=== PATIENT | male | born 1990 | race African-American/Black ===

== ENCOUNTER 2018-06-15 11:16 | Emergency (ER) | payer MEDICAID, OTHER ==
[2018-06-15 12:01] LABS: APPEARANCE,URINE CLEAR; BILIRUBIN,URINE NEGATIVE (NEGATIVE); COLOR,URINE YELLOW; GLUCOSE, URINE NEGATIVE (NEGATIVE); KETONES,URINE NEGATIVE (NEGATIVE); LEUKOCYTE ESTERASE,URINE TRACE (NEGATIVE); NITRITE,URINE NEGATIVE (NEGATIVE); PROTEIN,URINE NEGATIVE (NEGATIVE); URINE SPECIFIC GRAVITY 1.012; UROBILINOGEN,URINE NEGATIVE mg/dL (<2.0)
--- NOTE | 2018-06-15 12:52 | ER Document Report ---
HPI - HPI Patient complains to provider of: Penile discharge and diarrhea Onset: Other - Several days Onset/Duration: Gradual Pain Level: 3 Context: 28-year-old circumcised male complaining of terminal dysuria and penile white thick discharge for several days. His female sexual partner also has some vaginal discharge and pelvic pain. They both presented to the emergency room for treatment today. He incidentally has had some diarrhea but none today. No rash. No testicular or scrotal pain or swelling. No penile swelling. Associated Symptoms: None Exacerbated by: Denies Relieved by: Denies Similar symptoms previously: No Recently seen / treated by doctor: No - ROS ROS below otherwise negative: Yes Systems Reviewed and Negative: Yes All other systems reviewed and negative - GASTROINTESTINAL Gastrointestinal: REPORTS: Abdominal Pain - REPRODUCTIVE Reproductive: REPORTS: Abnormal bleeding / discharge Past Medical History - General Information source: Patient - Social History Smoking Status: Unknown if Ever Smoked Frequency of alcohol use: None Drug Abuse: None Lives with: Family Family History: Reviewed & Not Pertinent Patient has suicidal ideation: No Patient has homicidal ideation: No - Medical History Medical History: Negative Surgical Hx: Negative Vertical Provider Document - CONSTITUTIONAL Agree With Documented VS: Yes General Appearance: No Apparent Distress - INFECTION CONTROL TRAVEL OUTSIDE OF THE [place] IN LAST 30 DAYS: No - NECK Neck: Supple - GI/ABDOMEN Gastrointestinal: Abdomen Soft, Abdomen Non-Tender - MUSCULOSKELETAL/EXTREMETIES Musculoskeletal/Extremeties: MAEW - NEURO Level of Consciousness: Alert - DERM Integumentary: No Rash Course - Re-evaluation Re-evalutation: 06/15/18 Positive for gonorrhea, negative for chlamydia, female sexual partner was positive for trichomonas I treated him with Flagyl as well. Advised not to drink alcohol. He has been treated for both gonorrhea and chlamydia prior to the results - Vital Signs Vital signs: Temp Pulse Resp BP Pulse Ox 98.4 F 70 16 138/68 H 98 06/15/18 11:25 06/15/18 11:25 06/15/18 11:25 06/15/18 11:25 06/15/18 11:25 - Laboratory Laboratory results interpreted by me: 06/15/18 11:25 Ur Leukocyte Esterase TRACE H Discharge - Discharge Clinical Impression: Gonorrhea Condition: Good Disposition: HOME, SELF-CARE Instructions: Gonorrhea ([facility]), Metronidazole ([facility]), [facility], Rocephin ([facility]) Additional Instructions: You have a gonorrheal sexually transmitted infection Rocephin 250 mg in your muscle has treated the gonorrhea No sex for 2 weeks You also need to be treated for trichomonas No alcohol when you take the Flagyl Prescriptions: Metronidazole [Flagyl 500 mg Tablet] 2,000 mg PO ONCE #4 tablet Forms: Return to Work
[2018-06-15] MEDS ORDERED: LIDOCAINE 1% INJ-PF (10 MG/ML) 30 ML SDV INJ ONE (13:00)
[2018-06-15] MEDS ORDERED: AZITHROMYCIN 250 MG TABLET PO ONE (13:00)
[2018-06-15] MEDS ORDERED: CEFTRIAXONE INJ 250 MG VIAL IM ONE (13:00)
[2018-06-15] MEDS ORDERED: ONDANSETRON 4 MG TAB.RAPDIS PO ONE (13:01)
[2018-06-15 13:29] LABS: CHLAM PCR NOT DETECTED (NOT DETECT); GON PCR DETECTED (NOT DETECT)
[2018-06-15 14:02] VITALS: BP 136/74
== END 2018-06-15 14:02 | disposition home or self-care (01) ==
LOC: ER 11:16
DX: A54.9 Gonococcal infection, unspecified (principal); R36.9 Urethral discharge, unspecified; R19.7 Diarrhea, unspecified; R30.0 Dysuria
CPT/HCPCS: 99284; 96372; 81001; 87491; 87591; S0119; J3490; J0696

== ENCOUNTER 2018-07-17 14:31 | Emergency (ER) | payer SELFPAY ==
[2018-07-17 14:45] VITALS: BP 126/63
[2018-07-17] MEDS ORDERED: CEFTRIAXONE INJ 250 MG VIAL IM ONE (14:58)
[2018-07-17] MEDS ORDERED: LIDOCAINE 1% INJ-PF (10 MG/ML) 30 ML SDV INJ ONE (14:58)
[2018-07-17] MEDS ORDERED: AZITHROMYCIN 1 GM SUSP PACKET PO ONE (14:58)
[2018-07-17] MEDS ORDERED: IBUPROFEN 800 MG TABLET PO ONE (14:59)
--- NOTE | 2018-07-17 15:05 | ER Document Report ---
HPI - HPI Patient complains to provider of: FEVER Time Seen by Provider: 07/17/18 14:48 Onset: Other - 4 DAYS Quality of pain: Other - SORE Severity: Severe Pain Level: 4 Context: Patient presents emergency department with complaints of flulike symptoms to include fever nasal congestion headache body pains and possible dehydration issues and night sweats for the past 4 days. He reports decreased eating but drinking approximately 12 bottles of water a day and his urine still looks dark. Denies vomiting and diarrhea. He reports he has not received a flu vaccine. Reports his daughter and his girlfriend had the same symptoms a couple weeks ago. He also reports he still having some penile discharge. He reports he was treated for gonorrhea on June 15 but did not take his medication correctly. Reports possible re-exposure. Associated Symptoms: Body/muscle aches, Fever, Headache Exacerbated by: Denies Relieved by: Denies Similar symptoms previously: No Recently seen / treated by doctor: No Past Medical History - General Information source: Patient - Social History Smoking Status: Unknown if Ever Smoked Cigarette use (# per day): No Frequency of alcohol use: None Drug Abuse: None Occupation: [employer] Lives with: Family Family History: Reviewed & Not Pertinent Patient has suicidal ideation: No Patient has homicidal ideation: No - Medical History Medical History: Negative Renal/ Medical History: Denies: Hx Peritoneal Dialysis Surgical Hx: Negative Vertical Provider Document - CONSTITUTIONAL Agree With Documented VS: Yes Exam Limitations: No Limitations General Appearance: WD/WN, No Apparent Distress - INFECTION CONTROL TRAVEL OUTSIDE OF THE [place] IN LAST 30 DAYS: No - HEENT HEENT: Atraumatic, Normocephalic, Pharyngeal Exudate, Pharyngeal Erythema - Good airway, clean voice. negative: Conjuctival Injection, Tympanic Membrane Red, Tympanic Membrane Bulging - NECK Neck: Normal Inspection, Supple. negative: Lymphadenopathy-Left, Lymphadenopathy-Right - RESPIRATORY Respiratory: Breath Sounds Normal, No Respiratory Distress - CARDIOVASCULAR Cardiovascular: Regular Rate, Regular Rhythm - GI/ABDOMEN Gastrointestinal: Abdomen Soft, Abdomen Non-Tender - BACK Back: Normal Inspection - MUSCULOSKELETAL/EXTREMETIES Musculoskeletal/Extremeties: BASHIR ABMROSE - NEURO Level of Consciousness: Awake, Alert, Appropriate Motor/Sensory: No Motor Deficit - DERM Integumentary: Warm, Dry Course - Re-evaluation Re-evalutation: 07/17/18 15:05 Patient was instructed on pending strep and GC chlamydia test. Patient will be treated with ibuprofen and p.o. fluids. Dictation of this chart was performed using voice recognition software; therefore, there may be some unintended grammatical errors. 07/17/18 16:04 Instructed on negative strep throat culture pending. Patient also instructed he will be contacted by the culture nurse for positive results he was also given the telephone number of the culture nurse if he wants to inquire himself. temp decreased with ibuprofen. - Vital Signs Vital signs: Temp Pulse Resp BP Pulse Ox 102.9 F H 94 15 126/63 H 99 07/17/18 14:43 07/17/18 14:43 07/17/18 14:43 07/17/18 14:43 07/17/18 14:43 Discharge - Discharge Clinical Impression: Flu-like symptoms, Possible exposure to STD Condition: Stable Disposition: HOME, SELF-CARE Instructions: Azithromycin ([facility]), Chlamydia ([facility]), Gonorrhea ([facility]), Use of Over -The-Counter Ibuprofen ([facility]), [facility] [place], Rocephin ([facility]) Additional Instructions: *You have been evaluated for flulike symptoms, possible re-exposure to STD *Monitor your temperature, take Tylenol or ibuprofen as indicated, push fluids, good handwashing *You have been treated for gonorrhea and chlamydia with Rocephin and Zithromax. To find out the results of your STD cultures contact the culture nurse at [phone] Wednesday through Wednesday 9am- 4pm *Your strep test was negative but I have sent off a throat culture. If you need antibiotics you will be contacted within 2 days. *Follow up with your primary care provider or the health department within 1 week for recheck *Return to ED for worsening condition, changes, needs Monitor your blood pressure. Your blood pressure was elevated today. This may be because you were anxious, in pain or because you need medication. It is important to follow up with your primary care provider for full evaluation. Forms: Elevated Blood Pressure, Return to Work
[2018-07-17 15:34] LABS: APPEARANCE,URINE CLEAR; BILIRUBIN,URINE NEGATIVE (NEGATIVE); COLOR,URINE YELLOW; GLUCOSE, URINE NEGATIVE (NEGATIVE); KETONES,URINE NEGATIVE (NEGATIVE); LEUKOCYTE ESTERASE,URINE NEGATIVE (NEGATIVE); NITRITE,URINE NEGATIVE (NEGATIVE); PROTEIN,URINE 100 mg/dL (NEGATIVE); URINE SPECIFIC GRAVITY 1.024
[2018-07-17 16:57] LABS: CHLAM PCR NOT DETECTED (NOT DETECT); GON PCR NOT DETECTED (NOT DETECT)
== END 2018-07-17 16:05 | disposition home or self-care (01) ==
LOC: ER 14:31
DX: R50.9 Fever, unspecified (principal); R05 Cough; R09.81 Nasal congestion; M79.10 Myalgia, unspecified site
CPT/HCPCS: 99283; 96372; 87070; 87880; 87077; 81001; 87491; 87591; J3490; Q0144; J0696

== ENCOUNTER 2018-09-14 11:21 | Emergency (ER) | payer SELFPAY ==
[2018-09-14 11:40] VITALS: BP 126/64
== END 2018-09-14 13:45 | disposition left against medical advice (07) ==
LOC: ER 11:21
DX: Z53.21 Procedure and treatment not carried out due to patient leaving prior to being seen by health care provider (principal)

== ENCOUNTER 2018-10-25 17:42 | Emergency (ER) | payer SELFPAY ==
[2018-10-25 17:52] VITALS: BP 136/80
[2018-10-25] MEDS ORDERED: LIDOCAINE 1% INJ-PF (10 MG/ML) 30 ML SDV INJ ONE (18:06)
[2018-10-25] MEDS ORDERED: CEFTRIAXONE INJ 250 MG VIAL IM ONE (18:06)
[2018-10-25] MEDS ORDERED: AZITHROMYCIN 250 MG TABLET PO ONE (18:06)
--- NOTE | 2018-10-25 18:17 | ER Document Report ---
HPI - HPI Time Seen by Provider: 10/25/18 18:06 Pain Level: 2 Notes: Patient is a 28-year-old male who presents the emergency department requesting closure to an STD. Patient states that his significant other is having discharge and he has needed treatment for gonorrhea before. Patient states that he does not have any discharge or discomfort when he urinates. He otherwise feels normal. Denies drug allergies. No other concerns or complaints. Patient states that he wants to get ahead of any developing symptoms. Denies any headache, fever, neck pain, URI, sore throat, chest pain, palpitations, syncope, cough, shortness of breath, wheeze, dyspnea, abdominal pain, nausea/vomiting/diarrhea, urinary retention, dysuria, hematuria, back pain, or rash. - ROS Systems Reviewed and Negative: Yes All other systems reviewed and negative - CONSTITUTIONAL Constitutional: DENIES: Fever, Chills Past Medical History - Social History Smoking Status: Never Smoker Family History: Reviewed & Not Pertinent Patient has suicidal ideation: No Patient has homicidal ideation: No Renal/ Medical History: Denies: Hx Peritoneal Dialysis Vertical Provider Document - CONSTITUTIONAL Agree With Documented VS: Yes Notes: PHYSICAL EXAMINATION: GENERAL: Well-appearing, well-nourished and in no acute distress. HEAD: Atraumatic, normocephalic. EYES: Pupils equal round and reactive to light, extraocular movements intact, sclera anicteric, conjunctiva are normal. ENT: Nares patent and without discharge. oropharynx clear without exudates. No tonsilar hypertrophy or erythema. Moist mucous membranes. NECK: Normal range of motion, supple without lymphadenopathy LUNGS: Breath sounds clear to auscultation bilaterally and equal. No wheezes rales or rhonchi. HEART: Regular rate and rhythm without murmurs, rubs, gallops. ABDOMEN: Soft, nontender, nondistended abdomen. No guarding, no rebound. No masses appreciated. Normal bowel sounds present. No CVA tenderness bilaterally. : No erythema, swelling, ulcerations, lesions. No urethral discharge. Nontender to palpation of the penis/testicles/scrotum. Musculoskeletal: FROM to passive/active. Strength 5+/5. NEUROLOGICAL: Normal speech, normal gait. PSYCH: Normal mood, normal affect. SKIN: Warm, Dry, normal turgor, no rashes or lesions noted. - INFECTION CONTROL TRAVEL OUTSIDE OF THE [place] IN LAST 30 DAYS: No Course - Re-evaluation Re-evalutation: 10/25/18 18:15 patient is an afebrile, well-hydrated, 28-year-old male who presents emergency department for Possible exposure to STD. Vitals are acceptable without significant tachycardia, tachypnea, or hypoxia. PE is otherwise unremarkable. Chlamydia and gonorrhea tests are pending. Patient was given Zithromax and Rocephin. Safe sexual practices reviewed. Patient to check with health department this week. Return to the ED with any other worsening/concerning symptoms as reviewed. Patient to call for his results later. Patient is in agreement. - Vital Signs Vital signs: Temp Pulse Resp BP Pulse Ox 99.4 F 81 18 136/80 H 99 10/25/18 17:49 10/25/18 17:49 10/25/18 17:49 10/25/18 17:49 10/25/18 17:49 Discharge - Discharge Clinical Impression: Possible exposure to STD Condition: Stable Disposition: HOME, SELF-CARE Additional Instructions: Maintain fluid intake Proper hygenic technique Keep the skin clean Tylenol/ibuprofen as needed Take medications as directed You may call for your test results tomorrow. F/u with your PCM in 3-5 days for a recheck Check in with the health department this week Consider consult with a Urologist for ongoing/worsening symptoms. Return to the ED with any worsening symptoms and/or development of fever, headache, chest pain, palpitations, syncope, shortness of breath, trouble breathing, abdominal pain, n/v/d, blood in stool/urine, loss of control of bowel/bladder, urinary retention, or other worsening symptoms that are concerning to you. Forms: Elevated Blood Pressure Referrals: [facility] [Provider Group] - Follow up as needed [facility] [NO LOCAL MD] - Follow up in 3-5 days
[2018-10-25 19:51] LABS: CHLAM PCR NOT DETECTED (NOT DETECT); GON PCR NOT DETECTED (NOT DETECT)
== END 2018-10-25 18:30 | disposition home or self-care (01) ==
LOC: ER 17:42
DX: Z20.2 Contact with and (suspected) exposure to infections with a predominantly sexual mode of transmission (principal)
CPT/HCPCS: 99283; 96372; 87491; 87591; J3490; J0696

== ENCOUNTER 2019-11-04 16:12 | Emergency (ER) | payer SELFPAY ==
[2019-11-04 16:19] VITALS: BP 125/69
[2019-11-04] MEDS ORDERED: CEFTRIAXONE INJ 250 MG VIAL IM ONE (16:21)
[2019-11-04] MEDS ORDERED: AZITHROMYCIN 250 MG TABLET PO ONE (16:21)
[2019-11-04] MEDS ORDERED: LIDOCAINE 1% INJ-PF (10 MG/ML) 30 ML SDV INJ ONE (16:21)
--- NOTE | 2019-11-04 16:27 | ER Document Report ---
HPI - HPI Patient complains to provider of: STD Exposure Time Seen by Provider: 11/04/19 16:16 Onset: Other Onset/Duration: Sudden Quality of pain: No pain Pain Level: Denies Context: 29-year-old male presents emergency department with reports that he is been exposed to chlamydia. Reports he slept with a lady without protection that was just tested for STDs here in the emergency department. She was positive for chlamydia. He would like to be treated. He denies symptoms. Denies penile discharge denies testicular pain. Reports he has had gonorrhea in the past. Denies fever vomiting diarrhea. Reports he is voiding without problems Associated Symptoms: None Exacerbated by: Denies Relieved by: Denies Similar symptoms previously: Yes Recently seen / treated by doctor: No - CONSTITUTIONAL Constitutional: DENIES: Fever, Chills - REPRODUCTIVE Reproductive: DENIES: : Past Medical History - General Information source: Patient - Social History Smoking Status: Never Smoker Chew tobacco use (# tins/day): No Frequency of alcohol use: None Drug Abuse: None Family History: Reviewed & Not Pertinent Patient has suicidal ideation: No Patient has homicidal ideation: No Renal/ Medical History: Reports: Other - gonorrhea. Denies: Hx Peritoneal Dialysis Surgical Hx: Negative Vertical Provider Document - CONSTITUTIONAL Agree With Documented VS: Yes Exam Limitations: No Limitations General Appearance: WD/WN, No Apparent Distress - INFECTION CONTROL TRAVEL OUTSIDE OF THE [place] IN LAST 30 DAYS: No - HEENT HEENT: Atraumatic, Normocephalic. negative: Conjuctival Injection - NECK Neck: Supple - RESPIRATORY Respiratory: Breath Sounds Normal, No Respiratory Distress - CARDIOVASCULAR Cardiovascular: Regular Rate, Regular Rhythm - GI/ABDOMEN Gastrointestinal: Abdomen Soft, Abdomen Non-Tender - MUSCULOSKELETAL/EXTREMETIES Musculoskeletal/Extremeties: BASHIR AMBROSE - NEURO Level of Consciousness: Awake, Alert, Appropriate Motor/Sensory: No Motor Deficit - DERM Integumentary: Warm, Dry Course - Re-evaluation Re-evalutation: 11/04/19 16:26 Patient was instructed on treatment for gonorrhea and chlamydia. He was instructed that he could wait for the results for 3 hours and then be treated or be treated now and call the culture nurse for his results. He was also instructed that he could be discharged home and called if he was positive for STDs. Patient reports he would just like to be treated right now without waiting. 11/04/19 20:23 Laboratory 11/04/19 16:25 Chlamydia DNA (PCR) DETECTED H N.gonorrhoeae DNA (PCR) NOT DETECTED - Vital Signs Vital signs: Temp Pulse Resp BP Pulse Ox 98.3 F 77 18 125/69 99 11/04/19 16:16 11/04/19 16:16 11/04/19 16:16 11/04/19 16:16 11/04/19 16:16 Discharge - Discharge Clinical Impression: STD exposure Condition: Stable Disposition: HOME, SELF-CARE Instructions: Azithromycin ([facility]), Chlamydia ([facility]), Gonorrhea ([facility]), [facility] [place], Rocephin ([facility]) Additional Instructions: *You have been evaluated for STD exposure *You have been treated for possible gonorrhea or chlamydia with Rocephin and azithromax *You may contact the culture nurse Wednesday through Wednesday 8 AM to 4 PM for your results at [phone] *Follow up with the health department for recheck *Always use protection (condom) during sexual intercourse *Return to ED for worsening condition, changes, needs Forms: Elevated Blood Pressure
[2019-11-04 18:04] LABS: CHLAM PCR DETECTED (NOT DETECT)
== END 2019-11-04 17:01 | disposition home or self-care (01) ==
LOC: ER 16:12
DX: Z20.2 Contact with and (suspected) exposure to infections with a predominantly sexual mode of transmission (principal)
CPT/HCPCS: 99283; 96372; 87491; 87591; J3490; J0696